=== PATIENT | male | born 1955 | race Caucasian/White ===

== ENCOUNTER 2016-07-28 15:31 | Inpatient (IN) | payer MEDICARE, OTHER ==
[~2016-07-28] VITALS: Ht 165.1 cm; Wt 68.7 kg
[2016-07-28] MEDS ORDERED: THIAMINE 100 MG in SOD CHLORIDE 0.9% 100 ML IVPB ONE (16:19)
[2016-07-28] MEDS ORDERED: SOD CHLORIDE 0.9% 500 ML IV STA (16:19)
[2016-07-28] MEDS ORDERED: DEXTROSE 50% 50 ML SYRINGE IV STA (16:47)
[2016-07-28] MEDS ORDERED: DEXTROSE 50% 50 ML SYRINGE ONE (16:48)
[2016-07-28 16:53] LABS: ADD SCAN DIFF NO
[2016-07-28 16:57] LABS: BASOPHIL # 0.1 10^3/ul (0.0-0.1); BASOPHILS % 1.1 % (0.0-2.0); EOSINOPHILS # 0.2 10^3/ul (0.0-0.5); EOSINOPHILS % 2.7 % (0.0-7.0); HEMATOCRIT 31.7 % (42.0-52.0); HEMOGLOBIN 10.2 g/dl (14.0-18.0); LYMPHOCYTES # 1.3 10^3/ul (0.8-2.9); LYMPHOCYTES % 16.4 % (15.0-51.0); MEAN CORPUSCULAR HEMOGLOBIN 30.6 pg (29.0-33.0); MEAN CORPUSCULAR HGB CONC 32.2 g/dl (32.0-37.0); MEAN CORPUSCULAR VOLUME 95.2 fl (82.0-101.0); MEAN PLATELET VOLUME 9.2 fl (7.4-10.4); MONOCYTE # 0.7 10^3/ul (0.3-0.9); MONOCYTES % 8.6 % (0.0-11.0); NEUTROPHIL # 5.6 10^3/ul (1.6-7.5); NEUTROPHILS % 70.7 % (39.0-77.0); PLATELET COUNT 327 10^3/UL (140-415); RED BLOOD COUNT 3.33 10^6/ul (4.70-6.10); RED CELL DISTRIBUTION WIDTH 17.8 % (11.5-14.5); WHITE BLOOD COUNT 7.9 10^3/ul (4.8-10.8)
[2016-07-28 17:13] LABS: INR 1.28; PARTIAL THROMBOPLASTIN TIME 32.3 Sec (25.0-35.0); PROTIME 16.1 Sec (12.2-14.2); PT RATIO 1.3
--- NOTE | 2016-07-28 17:19 | RADRPT ---
PROCEDURE: CT brain without contrast CLINICAL INDICATION: Altered mental status TECHNIQUE: CT of the brain without contrast performed on a multidetector CT scanner, with multiplan ar reformats. One or more of the following dose reduction techniques were used: Automated exposure control, adjustment in mA and / or kV according to patient size, use of iterative reconstructive león hnique. CTDIvol = 45 mGy; DLP = 720 mGy-cm. COMPARISON: None available FINDINGS: No acute intracranial hemorrhage is identified. No extra-axial fluid collection is seen. There is no mass effect. No midline shift is identified. Ventricles and sulci are mild to moderately enlarged compatible with volume loss. There are mild areas of hypodensity in the periventricular - deep white matter which are nonspecific but suggestive of chronic small vessel ischemic changes. Durand-white differentiation is preserved. Atherosclerotic calcifications of the proximal intracranial arteries are noted. Osseous structures are unremarkable. Mastoid air cells and imaged paranasal sinuses grossly clear. IMPRESSION: 1. No evidence of acute intracranial pathology. 2. Mild to moderate volume loss, with mild chronic small vessel ischemic changes. RPTAT: VV .Dandy Hua MD, MD Date Time Electronically viewed and signed by .Dandy Hua MD, MD on 07/28/2016 17:18 .O/
[2016-07-28 17:24] LABS: ALANINE AMINOTRANSFERASE 39 IU/L (13-69); ALBUMIN 3.6 g/dl (3.3-4.9); ALKALINE PHOSPHATASE 175 IU/L (42-121); ANION GAP 30 (8-16); ASPARTATE AMINO TRANSFERASE 35 IU/L (15-46); BLOOD UREA NITROGEN 90 mg/dl (7-20); CALCIUM 8.9 mg/dl (8.4-10.2); CARBON DIOXIDE 16 mmol/L (21-31); CHLORIDE 100 mmol/L (97-110); SODIUM 138 mmol/L (135-144); TOTAL PROTEIN 7.2 g/dl (6.1-8.1)
[2016-07-28 17:36] LABS: ACETAMINOPHEN < 10.0 ug/ml (10.0-30.0); CREATININE 16.97 mg/dl (0.61-1.24); ETHANOL < 10.0 mg/dl; GLUCOSE 26 mg/dl (70-220); POTASSIUM 7.6 mmol/L (3.5-5.1); SALICYLATE < 1.0 mg/dl (5.0-30.0)
[2016-07-28] MEDS ORDERED: NA POLYST SULFON 15 GM/60 ML BTL PO STA (17:39)
[2016-07-28] MEDS ORDERED: INSULIN REGULAR, HUMAN 100 UNIT/1 ML 3ML VIAL IV STA (17:39)
[2016-07-28] MEDS ORDERED: DEXTROSE 50% 50 ML SYRINGE IV PRN ×2 (18:00→22:30)
[2016-07-28 18:04] LABS: T3 UPTAKE 44.9 % (23.5-40.5)
--- NOTE | 2016-07-28 18:05 | RADRPT ---
PROCEDURE: XR Chest. CLINICAL INDICATION: Chest pain TECHNIQUE: Chest AP portable. COMPARISON: No comparison available. FINDINGS: The mediastinal structures are unremarkable. There is calcification of the thoracic aorta (consiste nt with atherosclerosis). There is mild cardiomegaly. The pulmonary vascularity is normal. The russ ng laura are unremarkable. No consolidation is identified. The pleural spaces are unremarkable. The osseous structures are unremarkable. IMPRESSION: Calcification of the thoracic aorta (consistent with atherosclerosis) Mild cardiomegaly No active intrathoracic disease RPTAT: HGDB .Edy Parsons MD, MD Date Time Electronically viewed and signed by .Edy Parsons MD, on 07/28/2016 18:04 .B/
--- NOTE | 2016-07-28 18:52 | ERA ---
ER Documentation Chief Complaint Date/Time DATE: 07/28/16 TIME: 18:43 Chief Complaint found on the street called by police for aloc HPI 60-year-old male with unknown past medical history brought in by ambulance for altered mental status. He was reportedly outside of a donut shop laying down for several hours. Police saw the patient and evaluated him. He seemed very confused and was not answering questions or getting up, so they called ambulance. When EMS evaluated the patient, he refused to stand up and get into the gurney. He was carried into the gurney and brought here. Vitals were stable in route. Patient was not answering many questions. Currently the patient is mumbling, seems altered, and not able to answer my questions ROS Unable to obtain given altered mental status Allergies Allergies: Coded Allergies: No Known Allergy (Unverified , 07/28/16) PMhx/Soc Unable to obtain Medical and Surgical Hx: Unable to obtain Smoking Status: Unknown if ever smoked FmHx Family History: other (Unable to obtain) Physical Exam Vitals Vital Signs Date Time Temp Pulse Resp B/P Pulse Ox O2 Delivery O2 Flow Rate FiO2 07/28/16 15:54 98.2 86 18 132/60 97 Physical Exam Const: Chronically ill-appearing, somnolent but arousable, mumbled speech, Head: Atraumatic Eyes: Normal Conjunctiva ENT: Normal External Ears, Nose and Mouth. Neck: Full range of motion..~ No meningismus. Resp: Clear to auscultation bilaterally Cardio: Regular rate and rhythm, no murmurs Abd: Soft, non tender, distended. Normal bowel sounds Skin: No petechiae or rashes Back: No midline or flank tenderness Ext: No cyanosis. Left upper extremity AV fistula noted with palpable thrill. Bilateral lower extremities with mild edema, with associated erythema, left greater than right. Bilateral lower extremity tenderness to palpation Neur: Somnolent but arousable, incomprehensible speech, not cooperative with neurologic exam and strength testing. Patient just stares at me Psych: Normal Mood and flat affect Result Diagram: 07/28/16 1643 07/28/16 1643 Results 24 hrs Laboratory Tests Test 07/28/16 16:43 07/28/16 16:46 07/28/16 20:06 White Blood Count 7.910^3/ul Red Blood Count 3.3310^6/ul Hemoglobin 10.2g/dl Hematocrit 31.7% Mean Corpuscular Volume 95.2fl Mean Corpuscular Hemoglobin 30.6pg Mean Corpuscular Hemoglobin Concent 32.2g/dl Red Cell Distribution Width 17.8% Platelet Count 53348^3/UL Mean Platelet Volume 9.2fl Neutrophils % 70.7% Lymphocytes % 16.4% Monocytes % 8.6% Eosinophils % 2.7% Basophils % 1.1% Nucleated Red Blood Cells % 0.0/100WBC Neutrophils # 5.610^3/ul Lymphocytes # 1.310^3/ul Monocytes # 0.710^3/ul Eosinophils # 0.210^3/ul Basophils # 0.110^3/ul Nucleated Red Blood Cells # 0.010^3/ul Prothrombin Time 16.1Sec Prothrombin Time Ratio 1.3 INR International Normalized Ratio 1.28 Activated Partial Thromboplast Time 32.3Sec Sodium Level 138mmol/L Potassium Level 7.6mmol/L Chloride Level 100mmol/L Carbon Dioxide Level 16mmol/L Anion Gap 30 Blood Urea Nitrogen 90mg/dl Creatinine 16.97mg/dl Glucose Level 26mg/dl Calcium Level 8.9mg/dl Total Bilirubin 0.0mg/dl Direct Bilirubin 0.00mg/dl Indirect Bilirubin 0.0mg/dl Aspartate Amino Transf (AST/SGOT) 35IU/L Alanine Aminotransferase (ALT/SGPT) 39IU/L Alkaline Phosphatase 175IU/L Ammonia < 9umol/l Troponin I 0.030ng/ml Total Protein 7.2g/dl Albumin 3.6g/dl Globulin 3.60g/dl Albumin/Globulin Ratio 1.00 Free Thyroxine Index 2.07ug/ml Thyroxine (T4) 4.6ug/dl Triiodothyronine (T3) Uptake 44.9% Salicylates Level < 1.0mg/dl Acetaminophen Level < 10.0ug/ml Ethyl Alcohol Level < 10.0mg/dl Bedside Glucose 26mg/dL 64mg/dL Current Medications Medications (Trade) Dose Ordered Sig/Raquel Route PRN Reason Start Time Stop Time Status Last Admin Dose Admin Sodium Chloride 500 ml @ 500 mls/hr Q1H STAT IV 07/28/16 16:19 07/28/16 17:18 DC 07/28/16 17:14 Thiamine HCl/ Sodium Chloride (Vitamin B1/NS) 101 ml @ 50 mls/hr Q2H2M ONCE IVPB 07/28/16 16:19 07/28/16 18:20 DC Dextrose (D50w Syringe) 100 ml ONCE STAT IV 07/28/16 16:47 07/28/16 16:49 DC 07/28/16 17:14 Dextrose (D50w Syringe) 50 ml STK-MED ONCE .ROUTE 07/28/16 16:48 07/28/16 16:49 DC Sodium Polystyrene Sulfonate (Kayexalate) 30 gm ONCE STAT PO 07/28/16 17:39 07/28/16 17:42 DC 07/28/16 20:16 Insulin Human Regular (Humulin R) 10 unit ONCE STAT IV 07/28/16 17:39 07/28/16 17:42 DC 07/28/16 20:17 Dextrose (D50w Syringe) ONCE PRN IV POC BLOOD GLUCOSE <250 MG/DL 07/28/16 18:00 07/28/16 20:18 Ondansetron HCl (Zofran Inj) 4 mg ER BRIDGE PRN IV NAUSEA AND/OR VOMITING 07/28/16 19:00 07/29/16 18:59 Acetaminophen 650 mg 650 mg ER BRIDGE PRN PO MILD PAIN/FEVER 07/28/16 19:00 07/29/16 18:59 Dextrose (D10w) 1,000 ml @ 125 mls/hr Q8H ONCE IV 07/28/16 20:25 07/29/16 04:24 Procedures/MDM EKG: Rate/Rhythm: Normal Sinus Rhythm QRS, ST, T-waves: Rightward axis, no changes consistent w/ acute ischemia Impression: No evidence of ischemia or arrhythmia Chest x-ray: No acute abnormalities CT head: IMPRESSION: 1. No evidence of acute intracranial pathology. 2. Mild to moderate volume loss, with mild chronic small vessel ischemic changes. .Dandy Hua MD, MD Date Time Electronically viewed and signed by .Dandy Hua MD, MD on 07/28/2016 17:18 Labs: Anemia, hyperkalemia, acidosis, elevated creatinine and BUN, hypoglycemia MDM: Patient is presenting with altered mental status. Vitals are stable. He was noted to have hypoglycemia for which dextrose was administered IV with improvement of his mental status, however the patient continued to act strange and makes strange comments, in addition to not answering questions appropriately. EKG did not show any acute abnormalities. Labs were notable for hyper kalemia. Given there was no EKG changes, he was treated with dextrose , insulin, and Kayexalate. He was placed on a D10 drip for recurrent hypoglycemia prior to insulin administration. His labs show evidence of end- stage renal disease and patient will require dialysis. I spoke with the inpatient team, who will consult nephrology for dialysis and will admit the patient to the telemetry unit. Critical Care Time: 45 minutes Treatments/Evaluations: Close monitoring and treatment of unstable vital signs, cardiorespiratory, and neurologic status, while maintaining tight balance of fluid, respiratory, and cardiac interventions. This time includes discussing the case with the patient and the patients family. This time does not include all procedures stated elsewhere in this record. This time also includes reviewing old records, labs and radiological studies. This time includes examining and re-examining the patient. Additionally, this time also includes arranging care with admitting and consulting physicians. Accepting Care Team: Current data and ongoing care discussed. Time: Time of admission Primary Provider: Jordan Consulting: nephrology (hospitalist to contact) Outstanding Data: none Departure Diagnosis: Primary Impression: Altered level of consciousness Additional Impressions: Hypoglycemia Hyperkalemia Chronic kidney disease on chronic dialysis Condition: Critical SERGIO PATEL MD Jul 28, 2016 18:52
[2016-07-28] MEDS ORDERED: ACETAMINOPHEN 325 MG TAB PO PRN ×2 (19:00→22:00)
[2016-07-28] MEDS ORDERED: ONDANSETRON 4 MG INJ IV PRN ×2 (19:00→22:00)
[2016-07-28] MEDS ORDERED: DEXTROSE 10% 1,000 ML IV ONE (20:25)
[2016-07-28 20:43] LABS: MAGNESIUM 2.5 mg/dl (1.7-2.5)
[2016-07-28 20:45] LABS: AADO2 Arterial 39.3 mmHg (7.0-24.0); Allen Test ACCEPTAB; Arterial Base Excess -10.4 mmol/L (-3.0-3); Arterial COHb 0.1 % (0.0-3.0); Arterial Fraction of Oxyhgb 91.1 % (93.0-99.0); Arterial HCO3 14.6 mmol/L (22.0-26.0); Arterial MetHb 0.5 % (0.0-1.5); Arterial Total Hemglobin 11.4 g/dl (12.0-18.0); MODE ROOM AIR
[2016-07-28 20:56] LABS: PHOSPHORUS 15.1 mg/dl (2.5-4.9)
[2016-07-28] MEDS ORDERED: NA BICARBONATE 8.4% 50 ML SYG IV STA (21:05)
[2016-07-28 21:28] VITALS: PULSE 96
[2016-07-28] MEDS ORDERED: CALCIUM GLUCONATE 10% 1 GM in SOD CHLORIDE 0.9% 100 ML IVPB ONE (21:30)
[2016-07-28 21:33] VITALS: Ht 165.1 cm; Wt 68.7 kg
[2016-07-28] MEDS ORDERED: [UNRECOGNIZED DRUG - REMARK] (21:35)
[2016-07-28] MEDS ORDERED: DOCUSATE SODIUM 100 MG CAP PO PRN (22:00)
[2016-07-28] MEDS ORDERED: BISACODYL (EC) 5 MG TAB PO PRN (22:00)
[2016-07-28] MEDS ORDERED: NACL 0.9% 3 ML SYG IV SCH (22:00)
[2016-07-28] MEDS: DEXTROSE 50% 50 ML SYRINGE IV PRN ×2 (22:04→22:59)
[2016-07-28 22:20] VITALS: BP_SYST 156; BP_DIAS 65; BP_DIAS 84; PULSE 76
[2016-07-28] MEDS ORDERED: GLUCOSE GEL 15 GRAM TUBE PO PRN ×2 (22:30)
[2016-07-28] MEDS ORDERED: GLUCAGON 1 MG INJ IM PRN (22:30)
[2016-07-28] MEDS ORDERED: INSULIN ASPART [NOVOLOG] 3 ML PEN SC SCH (22:30)
[2016-07-28] MEDS ORDERED: GLUCOSE GEL 15 GRAM TUBE BUCCAL PRN (22:30)
[2016-07-28 22:40] LABS: CALCIUM 8.8 mg/dl (8.4-10.2)
[2016-07-28 22:50] VITALS: BP 147/81; PULSE 74
[2016-07-28 22:50] LABS: POTASSIUM 6.8 mmol/L (3.5-5.1)
[2016-07-28 22:51] LABS: CREATININE 16.81 mg/dl (0.61-1.24)
[2016-07-28 23:20] VITALS: BP 136/79; PULSE 72
[2016-07-28 23:50] VITALS: BP 129/77; PULSE 70
[2016-07-29] VITALS (31 sets, daily range): BP systolic 120–170; BP diastolic 53–126; PULSE 65–101; RESP 13–28
[2016-07-29] MEDS: DEXTROSE 50% 50 ML SYRINGE IV PRN (00:10)
[2016-07-29] MEDS ORDERED: ACCU-CHEK XX SCH ×2 (01:00→02:00)
[2016-07-29] MEDS: DEXTROSE 10% 1,000 ML IV SCH ×3 (01:07→12:58)
--- NOTE | 2016-07-29 04:13 | HP ---
Date/Time of Note Date/Time of Note DATE: 07/29/16 TIME: 04:00 Assessment/Plan VTE Prophylaxis VTE Prophylaxis Intervention: SCD's Lines/Catheters Urinary Cath still in place: No Assessment/Plan Chief Complaint/Hosp Course This is a 60-year-old male being admitted to the telemetry floor for: #1 altered mental status: Secondary to metabolic causes such as hypoglycemia possible uremic encephalopathy. Will obtain a urine drug screen the patient can possibly be an anuric. Blood sugar checks every 2 hours. Goal is to maintain blood sugars above 80. Patient's potassium on admission was 7.5 however there were no EKG changes. Patient did have an elevated creatinine of 16 though baseline is not known at this time. Patient's phosphorus 15. BUN 90 secondary to patient's altered mental status and abnormal kidney function and electrolyte laboratory work urgent consult was placed to nephrology for dialysis. Patient will undergo hemodialysis urgently. #2 end-stage renal disease: Patient will undergo urgent hemodialysis secondary to possible uremic encephalopathy at this time. We will continue to monitor electrolytes. Nephrology consult placed, appreciate their involvement #3 hypoglycemia: Likely secondary to underlying poor nutrition as well as end- stage renal disease. The current time will monitor blood sugars every 2 hours. Will provide amps of D50 if needed. May also need IV fluids with dextrose. Insulin sliding scale. If patient's sugars continue to be hypercalcemic patient may need a higher level of care in the ICU.. #4 Diabetes mellitus: We will obtain a hemoglobin A1c, insulin sliding scale, further recommendations as per #3. #5 hypertension: We will continue to monitor this and start any medications if necessary. #6 DVT and GI prophylaxis: SCDs, Protonix Further treatment strategy will be implemented as per the clinical course. Will attempt to confirm with patient if he is on any medications as an outpatient. There are no current records of any medications that he is taking. Problems: HPI/ROS Admit Date/Time Admit Date/Time Jul 28, 2016 at 18:53 Hx of Present Illness Chief complaint: Altered mental status 60-year-old male with unknown past medical history brought in by ambulance for altered mental status. He was reportedly outside of a donut shop laying down for several hours. Police saw the patient and evaluated him. He seemed very confused and was not answering questions or getting up, so they called ambulance. When EMS evaluated the patient, he refused to stand up and get into the gurney. He was carried into the gurney and brought here. Vitals were stable in route. Patient was not answering many questions. As per the ED physician patient was mumbling, seems altered, and not able to answer my questions. During my examination the patient that he was still confused he was able to respond to some questions. He did state that he underwent dialysis last week while using his left upper extremity AV fistula. Patient was unable to give an appropriate answer regarding whether he is oliguric or anuric. Allergies: NKDA Medications: patient denies ROS Subjective hx not possible: pt critical status, other (Unable to give an appropriate history secondary to his confusion and somnolent status) PMH/Family/Social Past Medical History End-stage renal disease on dialysis, diabetes mellitus, high blood pressure Past Surgical History Left upper extremity AV fistula Family History Significant Family History: no pertinent family hx Social History Unable to fully assess his recreational drug use history secondary to somnolence. Alcohol Use: other (Patient denies still unable to properly assess secondary to his somnolence) Smoking Status: Current every day smoker Drug Use: none Exam/Review of Systems Vital Signs Vitals Vital Signs Date Time Temp Pulse Resp B/P Pulse Ox O2 Delivery O2 Flow Rate FiO2 07/29/16 03:00 94 17 146/60 95 07/29/16 02:30 Nasal Cannula 07/29/16 01:35 2.0 07/29/16 01:00 98.3 Intake and Output 07/28/16 07/28/16 07/29/16 15:00 23:00 07:00 Intake Total 300 ml Output Total 1300 ml Balance -1000 ml Exam Exam General: Patient is somnolent however he is easily arousable. Patient does get agitated. HEENT: There appears to be some abrasions of the forehead and scalp poor dentition, Neck: Supple with full range of motion. No rigidity or meningismus Chest: Nontender Lungs: Clear to auscultation bilaterally no crackles rales or wheezing Heart: Normal S1-S2, Regular rhythm and rate. No appreciable murmur Abdomen: Soft , nontender, nondistended , bowel sounds are present. No guarding no rebound tenderness , No masses or organomegaly. Extremities: Normal to inspection, no edema no cyanosis, left upper extremity AV fistula with palpable thrill Neurologic: Normal mental status, speech normal, cranial nerves II through XII are intact, motor and sensory are intact, no focal weakness Skin: Dry rough scaly skin of the lower extremities Additional Comments EKG: Rate/Rhythm: Normal Sinus Rhythm QRS, ST, T-waves: Rightward axis, no changes consistent w/ acute ischemia As per ED physician documentation CLINICAL INDICATION: Altered mental status TECHNIQUE: CT of the brain without contrast performed on a multidetector CT scanner, with multiplanar reformats. One or more of the following dose reduction techniques were used: Automated exposure control, adjustment in mA and / or kV according to patient size, use of iterative reconstructive technique. CTDIvol = 45 mGy; DLP = 720 mGy-cm. COMPARISON: None available FINDINGS: No acute intracranial hemorrhage is identified. No extra-axial fluid collection is seen. There is no mass effect. No midline shift is identified. Ventricles and sulci are mild to moderately enlarged compatible with volume loss. There are mild areas of hypodensity in the periventricular - deep white matter which are nonspecific but suggestive of chronic small vessel ischemic changes. Durand-white differentiation is preserved. Atherosclerotic calcifications of the proximal intracranial arteries are noted. Osseous structures are unremarkable. Mastoid air cells and imaged paranasal sinuses grossly clear. IMPRESSION: 1. No evidence of acute intracranial pathology. 2. Mild to moderate volume loss, with mild chronic small vessel ischemic changes. RPTAT: VV .Dandy Hua MD, MD Date Time Electronically viewed and signed by .Dandy Hua MD, on 07/28/2016 17:18 PROCEDURE: XR Chest. CLINICAL INDICATION: Chest pain TECHNIQUE: Chest AP portable. COMPARISON: No comparison available. FINDINGS: The mediastinal structures are unremarkable. There is calcification of the thoracic aorta (consistent with atherosclerosis). There is mild cardiomegaly. The pulmonary vascularity is normal. The lung laura are unremarkable. No consolidation is identified. The pleural spaces are unremarkable. The osseous structures are unremarkable. IMPRESSION: Calcification of the thoracic aorta (consistent with atherosclerosis) Mild cardiomegaly No active intrathoracic disease RPTAT: HGDB .Edy Parsons MD, MD Date Time Electronically viewed and signed by .Edy Parsons MD, MD on 07/28/2016 18:04 Labs Result Diagram: 07/28/16 1643 07/28/16 0190 Medications Medications Current Medications Ondansetron HCl (Zofran Inj) 4 mg Q6H PRN IV NAUSEA AND/OR VOMITING; Start at 22:00 Acetaminophen (Tylenol Tab) 650 mg Q6H PRN PO PAIN LEVEL 1-3 OR FEVER; Start at 22:00 Docusate Sodium (Colace) 100 mg Q12H PRN PO CONSTIPATION; Start 07/28/16 at 22: 00 Bisacodyl (Dulcolax) 5 mg DAILY PRN PO CONSTIPATION; Start 07/28/16 at 22:00 Pantoprazole (Protonix Iv) 40 mg DAILY@06 IV ; Start 07/29/16 at 06:00 Miscellaneous Information 1 ea NOTE XX ; Start 07/28/16 at 22:30 Glucose (Glutose) 15 gm Q15M PRN PO DECREASED GLUCOSE; Start 07/28/16 at 22:30 Glucose (Glutose) 22.5 gm Q15M PRN PO DECREASED GLUCOSE; Start 07/28/16 at 22: 30 Dextrose (D50w Syringe) 25 ml Q15M PRN IV DECREASED GLUCOSE; Start 07/28/16 at 22:30 Dextrose (D50w Syringe) 50 ml Q15M PRN IV DECREASED GLUCOSE Last administered on 07/29/16 00:10; Admin Dose 50 ML; Start 07/28/16 at 22:30 Glucagon (Glucagen) 1 mg Q15M PRN IM DECREASED GLUCOSE; Start 07/28/16 at 22:30 Glucose 15 gm 15 gm Q15M PRN BUCCAL DECREASED GLUCOSE; Start 07/28/16 at 22:30 Dextrose (D10w) 1,000 ml @ 100 mls/hr Q10H IV Last administered on 07/29/16 01:07; Admin Dose 100 MLS/HR; Start 07/28/16 at 23:00 Insulin Aspart (Novolog Insulin Pen) NOVOLOG *MILD* ALGORI... Q2 SC ; Start at 05:00 MELY AYALA Jul 29, 2016 04:12
[2016-07-29] MEDS: INSULIN ASPART [NOVOLOG] 3 ML PEN SC SCH ×6 (05:00→15:00)
[2016-07-29] MEDS ORDERED: PANTOPRAZOLE 40 MG INJ IV SCH (06:00)
[2016-07-29 06:10] LABS: ADD SCAN DIFF NO
[2016-07-29 06:33] LABS: BASOPHIL # 0.1 10^3/ul (0.0-0.1); EOSINOPHILS # 0.4 10^3/ul (0.0-0.5); EOSINOPHILS % 5.5 % (0.0-7.0); HEMATOCRIT 28.6 % (42.0-52.0); HEMOGLOBIN 9.3 g/dl (14.0-18.0); LYMPHOCYTES # 1.1 10^3/ul (0.8-2.9); LYMPHOCYTES % 15.8 % (15.0-51.0); MEAN CORPUSCULAR HEMOGLOBIN 30.3 pg (29.0-33.0); MEAN CORPUSCULAR HGB CONC 32.5 g/dl (32.0-37.0); MEAN CORPUSCULAR VOLUME 93.2 fl (82.0-101.0); MEAN PLATELET VOLUME 9.2 fl (7.4-10.4); MONOCYTE # 0.7 10^3/ul (0.3-0.9); MONOCYTES % 9.6 % (0.0-11.0); NEUTROPHIL # 4.8 10^3/ul (1.6-7.5); NEUTROPHILS % 67.8 % (39.0-77.0); PLATELET COUNT 327 10^3/UL (140-415); RED BLOOD COUNT 3.07 10^6/ul (4.70-6.10); RED CELL DISTRIBUTION WIDTH 17.3 % (11.5-14.5); WHITE BLOOD COUNT 7.1 10^3/ul (4.8-10.8)
[2016-07-29 07:30] LABS: ALBUMIN/GLOBULIN RATIO 0.93; BILIRUBIN,INDIRECT 0.1 mg/dl (0-1.1); BILIRUBIN,TOTAL 0.1 mg/dl (0.2-1.3); CALCIUM 8.2 mg/dl (8.4-10.2); CHOL/HDL RATIO 4.2 RATIO; CREATININE 13.25 mg/dl (0.61-1.24); MAGNESIUM 2.1 mg/dl (1.7-2.5); POTASSIUM 5.5 mmol/L (3.5-5.1); TOTAL PROTEIN 6.2 g/dl (6.1-8.1)
[2016-07-29] MEDS ORDERED: ACETAMINOPHEN 325 MG TAB PO PRN (10:30)
--- NOTE | 2016-07-29 13:28 | CONS ---
DATE OF ADMISSION: 07/28/2016 DATE OF CONSULTATION: 07/29/2016 REASON FOR CONSULTATION: End-stage renal disease, hyperkalemia. REQUESTING PHYSICIAN: Dr. Ortega HISTORY OF PRESENT ILLNESS: This is a 60-year-old male with a past medical history of end-stage korin al disease on dialysis for 2 years, access is a left AV fistula. The patient does not know who his n ephrologist name or his location of dialysis. He was admitted to [facility] after being noted to be altered and found to be very confused. When patient was evaluated by ____ gaby dailey he was combative and as a result he was transferred to [facility]. Upon arriv al, the patient was noted to be hypoglycemic with glucose levels of 29 and hyperkalemia with potassi um of 7.6. The patient was given temporizing measures in the emergency room and was initiated on ur gent hemodialysis. The patient only dialyzed for 2 hours as needed but he was refusing prolonged di alysis. The patient was then transferred to intensive care unit. Upon my evaluation of the patient at this time, he is currently combative. He was currently combativ e. He denies any ____ chest pain, fevers, chills, nausea, vomiting. PAST MEDICAL HISTORY: As stated above, history of end-stage renal disease, history of diabetes, hyp ertension, anemia PAST SURGICAL HISTORY: Status post AV fistula. FAMILY HISTORY: Noncontributory. SOCIAL HISTORY: Unknown but patient denies ____ smoking, alcohol use. MEDICATIONS: The patient's medications have been reviewed. ALLERGIES: NO KNOWN DRUG ALLERGIES. REVIEW OF SYSTEMS: A 14-point review of systems was conducted. Pertinent positives as stated in the HPI, otherwise negative. PHYSICAL EXAMINATION: VITAL SIGNS: Blood pressure is 148/59, respirations 15, pulse 93, temperature 98.0. HEENT: Head is normocephalic. Pupils are reactive to light. NECK: Supple. HEART: Trachea rate. LUNGS: Show diminished breath sounds at the base. ABDOMEN: Soft, nontender to palpation without rebound or guarding. EXTREMITIES: Negative for clubbing, cyanosis, no edema. DERMATOLOGIC: No rashes. MUSCULOSKELETAL: The patient has positive AV fistula left upper extremity. NEUROLOGIC: No obvious focal deficits. The patient's medications have been reviewed. LABORATORY DATA: Shows sodium 140, potassium 5.5, chloride 101, BUN ____ , creatinine 13.25. Whit e count ____ , hemoglobin 9.3, hematocrit 28.6, platelet count 227. ASSESSMENT AND PLAN: This is a 60-year-old male who presents with: 1. End-stage renal disease. The patient is on hemodialysis, days unknown. Access is a right upper extremity fistula. The patient had urgent hemodialysis yesterday. Plan for dialysis again for 3 miguelina rs ____ calcium 2.5. Will ultrafiltrate as tolerated. 2. Hyperkalemia secondary to end-stage renal disease. The patient will continue dialysis on a low potassium diet. Continue renal diet. 3. Anemia. Will monitor H and H levels. Continue Epogen as needed. 4. Mineral bone disorder. Will monitor calcium and phosphorus levels. 5. Metabolic acidosis, ____ renal disease. The patient will be dialyzed on a ____ bath. 6. Acute encephalopathy, etiology is secondary to hyperglycemia. Possible uremia. Will continue to clinically monitor. Continue hemodialysis. 7. Diabetes. Continue Accu-Cheks, insulin sliding scale. 8. Hypertension. Continue to monitor. Continue ultrafiltration dialysis. Thank you, Dr. Ortega, for this interesting consult. It will be a pleasure to follow patient with bertin rodriguez throughout the hospital course. Dictated By: ITALO BURCH/ROHIT Conf#: [id number] DID#: [id number]
--- NOTE | 2016-07-29 14:08 | PN ---
Date/Time of Note Date/Time of Note DATE: 07/29/16 TIME: 14:04 Assessment/Plan VTE Prophylaxis VTE Prophylaxis Intervention: SCD's Lines/Catheters IV Catheter Type (from Nrs): Peripheral IV Urinary Cath still in place: No Assessment/Plan Assessment/Plan 60 yo M with ESRD on HD, HTN, DM, HL admitted after being found confused following a fall yesterday. Noted to be significantly hypoglycemic on arrival. Re pt's chronic medical problems, pt stated he gets his home meds from the [facility] at [facility]. I called that pharmacy, last fill there was back in December and was not for BP or DM meds. #ESRD on HD: renal following for HD #DM2: cont SSI #HTN: start CCB #HL: start statin #groin rash: clinically consistent with tinea -->topical antifungal #foot lesions: wound care cs TRANSFER TO FLOOR MED/SURG Subjective 24 Hr Interval Summary Free Text/Dictation Patient highly demanding. Asking that is coffee be reheated but also upset that is main dish is too hot. Regarding the events that led to patient's admission, pt states he did not go to HD on Wednesday but does not recall why he didn't go. States that though he uses a wheelchair to walk long distances, he was ambulating unassisted yesterday and tripped over a crack in the sidewalk on [facility]. A bystander called EMS and that's how patient ended up in the ER. Pt denies EtOH consumption. States he has not been eating or drinking less than usual in recent days. Has many other requests including an electric wheelchair. Exam/Review of Systems Vital Signs Vitals Vital Signs Date Time Temp Pulse Resp B/P Pulse Ox O2 Delivery O2 Flow Rate FiO2 07/29/16 12:15 91 15 100 07/29/16 12:00 97.5 144/55 Nasal Cannula 2.0 Intake and Output 07/28/16 07/28/16 07/29/16 15:00 23:00 07:00 Intake Total 300 ml Output Total 1300 ml Balance -1000 ml Exam demanding, several scalp abrasions no mrg lungs clear abd soft feet with several wounds bl-->surgically absent L 5th toe, 4th toe swollen though no ttp. also small escars at medial aspects of both big toes. feet are warm and well perfused +groin area with significant erythema multiple abrasions to back +ecchymoses L hip Results Result Diagram: 07/29/16 0532 07/29/16 0532 Results 24 hrs Laboratory Tests Test 07/28/16 16:43 07/28/16 16:46 07/28/16 20:04 07/28/16 20:06 White Blood Count 7.9 Red Blood Count 3.33 L Hemoglobin 10.2 L Hematocrit 31.7 L Mean Corpuscular Volume 95.2 Mean Corpuscular Hemoglobin 30.6 Mean Corpuscular Hemoglobin Concent 32.2 Red Cell Distribution Width 17.8 H Platelet Count 327 Mean Platelet Volume 9.2 Neutrophils % 70.7 Lymphocytes % 16.4 Monocytes % 8.6 Eosinophils % 2.7 Basophils % 1.1 Nucleated Red Blood Cells % 0.0 Neutrophils # 5.6 Lymphocytes # 1.3 Monocytes # 0.7 Eosinophils # 0.2 Basophils # 0.1 Nucleated Red Blood Cells # 0.0 Prothrombin Time 16.1 H Prothrombin Time Ratio 1.3 INR International Normalized Ratio 1.28 Activated Partial Thromboplast Time 32.3 Sodium Level 138 Potassium Level 7.6 *H Chloride Level 100 Carbon Dioxide Level 16 L Anion Gap 30 H Blood Urea Nitrogen 90 H Creatinine 16.97 H Glucose Level 26 *L Calcium Level 8.9 Phosphorus Level 15.1 H Magnesium Level 2.5 Total Bilirubin 0.0 L Direct Bilirubin 0.00 Indirect Bilirubin 0.0 Aspartate Amino Transf (AST/SGOT) 35 Alanine Aminotransferase (ALT/SGPT) 39 Alkaline Phosphatase 175 H Ammonia < 9 L Troponin I 0.030 Total Protein 7.2 Albumin 3.6 Globulin 3.60 H Albumin/Globulin Ratio 1.00 Free Thyroxine Index 2.07 Thyroxine (T4) 4.6 L Triiodothyronine (T3) Uptake 44.9 H Salicylates Level < 1.0 L Acetaminophen Level < 10.0 L Ethyl Alcohol Level < 10.0 Bedside Glucose 26 *L 64 L Blood Gas Specimen Source Blood arterial Arterial Blood Date Drawn 07/28/2016 8:32:24 PM Arterial Blood pH (Temp corrected) 7.309 L Arterial Blood pCO2 (Temp correct) 29.8 L Arterial Blood pO2 (Temp corrected) 74.7 L Arterial Blood HCO3 14.6 L Arterial Blood Base Excess -10.4 L Arterial Blood Oxygen Saturation 91.6 L Bradley Test ACCEPTAB Arterial Blood Gas Puncture Site Right Radial Arterial Blood Carboxyhemoglobin 0.1 Arterial Blood Methemoglobin 0.5 Blood Gas A-a O2 Differential 39.3 H Oxyhemoglobin Percent 91.1 L Total Hemoglobin 11.4 L Blood Gas Temperature 37.0 Blood Gas Modality ROOM AIR FiO2 21.0 Blood Gas Notified Whom AA Blood Gas Notified Time 07/28/2016 8:45:20 PM Test 07/28/16 20:52 07/28/16 20:58 07/28/16 21:50 07/28/16 22:01 Bedside Glucose 137 26 *L Lactic Acid Level 1.4 Sodium Level 138 Potassium Level 6.8 *H Chloride Level 103 Carbon Dioxide Level 16 L Anion Gap 26 H Blood Urea Nitrogen 89 H Creatinine 16.81 H Glucose Level 29 *L Calcium Level 8.8 Test 07/28/16 22:21 07/28/16 22:45 07/28/16 23:22 07/28/16 23:44 Bedside Glucose 93 43 *L 78 72 Test 07/29/16 00:03 07/29/16 00:31 07/29/16 01:02 07/29/16 01:21 Bedside Glucose 43 *L 106 66 L 73 Test 07/29/16 01:51 07/29/16 04:10 07/29/16 05:30 07/29/16 05:32 Bedside Glucose 78 89 Hemoglobin A1c 4.9 White Blood Count 7.1 Red Blood Count 3.07 L Hemoglobin 9.3 L Hematocrit 28.6 L Mean Corpuscular Volume 93.2 Mean Corpuscular Hemoglobin 30.3 Mean Corpuscular Hemoglobin Concent 32.5 Red Cell Distribution Width 17.3 H Platelet Count 327 Mean Platelet Volume 9.2 Neutrophils % 67.8 Lymphocytes % 15.8 Monocytes % 9.6 Eosinophils % 5.5 Basophils % 1.0 Nucleated Red Blood Cells % 0.0 Neutrophils # 4.8 Lymphocytes # 1.1 Monocytes # 0.7 Eosinophils # 0.4 Basophils # 0.1 Nucleated Red Blood Cells # 0.0 Sodium Level 140 Potassium Level 5.5 H Chloride Level 101 Carbon Dioxide Level 23 Anion Gap 22 H Blood Urea Nitrogen 71 H Creatinine 13.25 #H Glucose Level 124 # Calcium Level 8.2 L Magnesium Level 2.1 Total Bilirubin 0.1 L Direct Bilirubin 0.00 Indirect Bilirubin 0.1 Aspartate Amino Transf (AST/SGOT) 34 Alanine Aminotransferase (ALT/SGPT) 32 Alkaline Phosphatase 137 H Total Protein 6.2 # Albumin 3.0 L Globulin 3.20 Albumin/Globulin Ratio 0.93 Triglycerides Level 89 Cholesterol Level 132 LDL Cholesterol, Calculated 83 HDL Cholesterol 31 Cholesterol/HDL Ratio 4.2 Test 07/29/16 05:39 07/29/16 07:17 07/29/16 09:09 07/29/16 11:10 Bedside Glucose 132 120 117 118 Test 07/29/16 13:03 Bedside Glucose 118 Medications Medications Current Medications Ondansetron HCl (Zofran Inj) 4 mg Q6H PRN IV NAUSEA AND/OR VOMITING; Start at 22:00 Docusate Sodium (Colace) 100 mg Q12H PRN PO CONSTIPATION; Start 07/28/16 at 22: 00 Bisacodyl (Dulcolax) 5 mg DAILY PRN PO CONSTIPATION; Start 07/28/16 at 22:00 Miscellaneous Information 1 ea NOTE XX ; Start 07/28/16 at 22:30 Glucose (Glutose) 15 gm Q15M PRN PO DECREASED GLUCOSE; Start 07/28/16 at 22:30 Glucose (Glutose) 22.5 gm Q15M PRN PO DECREASED GLUCOSE; Start 07/28/16 at 22: 30 Dextrose (D50w Syringe) 25 ml Q15M PRN IV DECREASED GLUCOSE; Start 07/28/16 at 22:30 Dextrose (D50w Syringe) 50 ml Q15M PRN IV DECREASED GLUCOSE Last administered on 07/29/16 00:10; Admin Dose 50 ML; Start 07/28/16 at 22:30 Glucagon (Glucagen) 1 mg Q15M PRN IM DECREASED GLUCOSE; Start 07/28/16 at 22:30 Glucose 15 gm 15 gm Q15M PRN BUCCAL DECREASED GLUCOSE; Start 07/28/16 at 22:30 Dextrose (D10w) 1,000 ml @ 100 mls/hr Q10H IV Last administered on 07/29/16 12:58; Admin Dose 100 MLS/HR; Start 07/28/16 at 23:00 Insulin Aspart (Novolog Insulin Pen) NOVOLOG *MILD* ALGORI... Q2 SC ; Start at 05:00 Acetaminophen (Tylenol Tab) 325 mg Q4H PRN PO PAIN AND OR ELEVATED TEMP; Start 07/29/16 at 10:30 MURPHY WHEAT MD Jul 29, 2016 14:07
[2016-07-29] MEDS ORDERED: traMADol 50 MG TAB GTB SCH (14:30)
[2016-07-29] MEDS ORDERED: AMLODIPINE 10 MG TAB PO ONE (15:00)
--- NOTE | 2016-07-29 16:16 | DS ---
Date/Time of Note Date/Time of Note DATE: 07/29/16 TIME: 16:15 Discharge Summary Admission/Discharge Info Admit Date/Time Jul 28, 2016 at 18:53 Discharge Date/Time Final Diagnosis hypoglycemia, toxic/metabolic encephalopathy, hypertension (POA), diabetes (POA ), end stage renal disease (present on admission), Patient Condition: Serious Consults nephrology Hx of Present Illness 60-year-old male with unknown past medical history brought in by ambulance for altered mental status. He was reportedly outside of a donut shop laying down for several hours. Police saw the patient and evaluated him. He seemed very confused and was not answering questions or getting up, so they called ambulance. When EMS evaluated the patient, he refused to stand up and get into the gurney. He was carried into the gurney and brought here. Vitals were stable in route. Patient was not answering many questions. As per the ED physician patient was mumbling, seems altered, and not able to answer my questions. During my examination the patient that he was still confused he was able to respond to some questions. He did state that he underwent dialysis last week while using his left upper extremity AV fistula. Patient was unable to give an appropriate answer regarding whether he is oliguric or anuric. Hospital Course Pt underwent HD shortly after admission. BGs improved with D10 infusion, pt's somnolence resolved and pt was awake and able to tolerate PO. Etiology of pt's episode of decreased LOC unknown. After ~20 hours in the hospital pt stated that he needed to leave to go to the social security office to pay his bills that he was a "free man" and he needed to leave the hospital. I came and spoke with the patient. Pt states that he lives with his sister but he is the one who pays the rent. Discussed with him that we do not know what precipitated/caused the events leading to his admission and that leaving prior to completion of work up could result in permanent disability or . Pt voiced understanding and still insisted on leaving. Home Meds Discontinued Reported Medications [patient denies] No Conflict Check 07/28/16 Follow-up Plan PCP within 7 days Primary Care Provider Time spent on discharge: > 30 minutes Pending Labs Laboratory Tests Test 07/28/16 16:43 07/28/16 16:46 07/28/16 20:04 07/28/16 20:06 White Blood Count 7.910^3/ul (4.8-10.8) Red Blood Count 3.3310^6/ul (4.70-6.10) Hemoglobin 10.2g/dl (14.0-18.0) Hematocrit 31.7% (42.0-52.0) Mean Corpuscular Volume 95.2fl (82.0-101.0) Mean Corpuscular Hemoglobin 30.6pg (29.0-33.0) Mean Corpuscular Hemoglobin Concent 32.2g/dl (32.0-37.0) Red Cell Distribution Width 17.8% (11.5-14.5) Platelet Count 84593^3/UL (140-415) Mean Platelet Volume 9.2fl (7.4-10.4) Neutrophils % 70.7% (39.0-77.0) Lymphocytes % 16.4% (15.0-51.0) Monocytes % 8.6% (0.0-11.0) Eosinophils % 2.7% (0.0-7.0) Basophils % 1.1% (0.0-2.0) Nucleated Red Blood Cells % 0.0/100WBC (0.0-0.0) Neutrophils # 5.610^3/ul (1.6-7.5) Lymphocytes # 1.310^3/ul (0.8-2.9) Monocytes # 0.710^3/ul (0.3-0.9) Eosinophils # 0.210^3/ul (0.0-0.5) Basophils # 0.110^3/ul (0.0-0.1) Nucleated Red Blood Cells # 0.010^3/ul (0.0-0.0) Prothrombin Time 16.1Sec (12.2-14.2) Prothrombin Time Ratio 1.3 INR International Normalized Ratio 1.28 Activated Partial Thromboplast Time 32.3Sec (25.0-35.0) Sodium Level 138mmol/L (135-144) Potassium Level 7.6mmol/L (3.5-5.1) Chloride Level 100mmol/L (97-110) Carbon Dioxide Level 16mmol/L (21-31) Anion Gap 30 (8-16) Blood Urea Nitrogen 90mg/dl (7-20) Creatinine 16.97mg/dl (0.61-1.24) Glucose Level 26mg/dl (70-220) Calcium Level 8.9mg/dl (8.4-10.2) Phosphorus Level 15.1mg/dl (2.5-4.9) Magnesium Level 2.5mg/dl (1.7-2.5) Total Bilirubin 0.0mg/dl (0.2-1.3) Direct Bilirubin 0.00mg/dl (0.00-0.20) Indirect Bilirubin 0.0mg/dl (0-1.1) Aspartate Amino Transf (AST/SGOT) 35IU/L (15-46) Alanine Aminotransferase (ALT/SGPT) 39IU/L (13-69) Alkaline Phosphatase 175IU/L (42-121) Ammonia < 9umol/l (9-30) Troponin I 0.030ng/ml (0.00-0.12) Total Protein 7.2g/dl (6.1-8.1) Albumin 3.6g/dl (3.3-4.9) Globulin 3.60g/dl (1.3-3.2) Albumin/Globulin Ratio 1.00 Free Thyroxine Index 2.07ug/ml (0.65-3.89) Thyroxine (T4) 4.6ug/dl (5.5-11.0) Triiodothyronine (T3) Uptake 44.9% (23.5-40.5) Salicylates Level < 1.0mg/dl (5.0-30.0) Acetaminophen Level < 10.0ug/ml (10.0-30.0) Ethyl Alcohol Level < 10.0mg/dl Bedside Glucose 26mg/dL (70-220) 64mg/dL (70-220) Blood Gas Specimen Source Blood arterial Arterial Blood Date Drawn 07/28/2016 8:32:24 PM Arterial Blood pH (Temp corrected) 7.309 (7.350-7.450) Arterial Blood pCO2 (Temp correct) 29.8mmhg (35-45) Arterial Blood pO2 (Temp corrected) 74.7mmHG (80-100.0) Arterial Blood HCO3 14.6mmol/L (22.0-26.0) Arterial Blood Base Excess -10.4mmol/L (-3.0-3) Arterial Blood Oxygen Saturation 91.6mmHG (95.0-98.0) Bradley Test ACCEPTAB Arterial Blood Gas Puncture Site Right Radial Arterial Blood Carboxyhemoglobin 0.1% (0.0-3.0) Arterial Blood Methemoglobin 0.5% (0.0-1.5) Blood Gas A-a O2 Differential 39.3mmHg (7.0-24.0) Oxyhemoglobin Percent 91.1% (93.0-99.0) Total Hemoglobin 11.4g/dl (12.0-18.0) Blood Gas Temperature 37.0C Blood Gas Modality ROOM AIR FiO2 21.0% Blood Gas Notified Whom AA Blood Gas Notified Time 07/28/2016 8:45:20 PM Test 07/28/16 20:52 07/28/16 20:58 07/28/16 21:50 07/28/16 22:01 Bedside Glucose 137mg/dL (70-220) 26mg/dL (70-220) Lactic Acid Level 1.4mmol/L (0.5-2.2) Sodium Level 138mmol/L (135-144) Potassium Level 6.8mmol/L (3.5-5.1) Chloride Level 103mmol/L (97-110) Carbon Dioxide Level 16mmol/L (21-31) Anion Gap 26 (8-16) Blood Urea Nitrogen 89mg/dl (7-20) Creatinine 16.81mg/dl (0.61-1.24) Glucose Level 29mg/dl (70-220) Calcium Level 8.8mg/dl (8.4-10.2) Test 07/28/16 22:21 07/28/16 22:45 07/28/16 23:22 07/28/16 23:44 Bedside Glucose 93mg/dL (70-220) 43mg/dL (70-220) 78mg/dL (70-220) 72mg/dL (70-220) Test 07/29/16 00:03 07/29/16 00:31 07/29/16 01:02 07/29/16 01:21 Bedside Glucose 43mg/dL (70-220) 106mg/dL (70-220) 66mg/dL (70-220) 73mg/dL (70-220) Test 07/29/16 01:51 07/29/16 04:10 07/29/16 05:30 07/29/16 05:32 Bedside Glucose 78mg/dL (70-220) 89mg/dL (70-220) Hemoglobin A1c 4.9% (0-5.9) White Blood Count 7.110^3/ul (4.8-10.8) Red Blood Count 3.0710^6/ul (4.70-6.10) Hemoglobin 9.3g/dl (14.0-18.0) Hematocrit 28.6% (42.0-52.0) Mean Corpuscular Volume 93.2fl (82.0-101.0) Mean Corpuscular Hemoglobin 30.3pg (29.0-33.0) Mean Corpuscular Hemoglobin Concent 32.5g/dl (32.0-37.0) Red Cell Distribution Width 17.3% (11.5-14.5) Platelet Count 96094^3/UL (140-415) Mean Platelet Volume 9.2fl (7.4-10.4) Neutrophils % 67.8% (39.0-77.0) Lymphocytes % 15.8% (15.0-51.0) Monocytes % 9.6% (0.0-11.0) Eosinophils % 5.5% (0.0-7.0) Basophils % 1.0% (0.0-2.0) Nucleated Red Blood Cells % 0.0/100WBC (0.0-0.0) Neutrophils # 4.810^3/ul (1.6-7.5) Lymphocytes # 1.110^3/ul (0.8-2.9) Monocytes # 0.710^3/ul (0.3-0.9) Eosinophils # 0.410^3/ul (0.0-0.5) Basophils # 0.110^3/ul (0.0-0.1) Nucleated Red Blood Cells # 0.010^3/ul (0.0-0.0) Sodium Level 140mmol/L (135-144) Potassium Level 5.5mmol/L (3.5-5.1) Chloride Level 101mmol/L (97-110) Carbon Dioxide Level 23mmol/L (21-31) Anion Gap 22 (8-16) Blood Urea Nitrogen 71mg/dl (7-20) Creatinine 13.25mg/dl (0.61-1.24) Glucose Level 124mg/dl (70-220) Calcium Level 8.2mg/dl (8.4-10.2) Magnesium Level 2.1mg/dl (1.7-2.5) Total Bilirubin 0.1mg/dl (0.2-1.3) Direct Bilirubin 0.00mg/dl (0.00-0.20) Indirect Bilirubin 0.1mg/dl (0-1.1) Aspartate Amino Transf (AST/SGOT) 34IU/L (15-46) Alanine Aminotransferase (ALT/SGPT) 32IU/L (13-69) Alkaline Phosphatase 137IU/L (42-121) Total Protein 6.2g/dl (6.1-8.1) Albumin 3.0g/dl (3.3-4.9) Globulin 3.20g/dl (1.3-3.2) Albumin/Globulin Ratio 0.93 Triglycerides Level 89mg/dl (0-149) Cholesterol Level 132mg/dl (100-200) LDL Cholesterol, Calculated 83mg/dl HDL Cholesterol 31mg/dl (30-78) Cholesterol/HDL Ratio 4.2RATIO Test 07/29/16 05:39 07/29/16 07:17 07/29/16 09:09 07/29/16 11:10 Bedside Glucose 132mg/dL (70-220) 120mg/dL (70-220) 117mg/dL (70-220) 118mg/dL (70-220) Test 07/29/16 13:03 07/29/16 15:31 Bedside Glucose 118mg/dL (70-220) 131mg/dL (70-220) MURPHY WHEAT MD Jul 29, 2016 16:16 (70-220) 118mg/dL (70-220) Test 07/29/16 13:03 07/29/16 15:31 Bedside Glucose 118mg/dL (70-220) 131mg/dL (70-220) MURPHY WHEAT MD Jul 29, 2016 16:16
[2016-07-29] MEDS ORDERED: CLOTRIMAZOLE 1% 30 GM CR TOP SCH (21:00)
[2016-07-29] MEDS ORDERED: ATORVASTATIN 20 MG TAB PO SCH (21:00)
[2016-07-30] MEDS ORDERED: AMLODIPINE 10 MG TAB PO SCH (09:00)
== END 2016-07-29 16:38 | disposition left against medical advice (07) | DRG 682 ==
LOC: E/R 15:31 → EDBD 15:31 → MS4 18:53 → MERGE 18:53 → ICU 21:09
PROVIDERS: ADMIT Internal Medicine; ATTEND Internal Medicine
PROC: 5A1D60Z (ICD-10-PCS; principal; 2016-07-28)
DX: I12.0 Hypertensive chronic kidney disease with stage 5 chronic kidney disease or end stage renal disease (principal); N18.6 End stage renal disease; G92 Toxic encephalopathy; E87.2 Acidosis; E87.5 Hyperkalemia; E11.649 Type 2 diabetes mellitus with hypoglycemia without coma; B35.8 Other dermatophytoses; Z99.2 Dependence on renal dialysis; F17.200 Nicotine dependence, unspecified, uncomplicated; D64.9 Anemia, unspecified; R29.704 NIHSS score 4
CPT/HCPCS: 36415; 36600; 70450; 71010; 80048; 80053; 80061; 80306; 82140; 82803; 82962; 83036; 83605; 83735; 84100; 84436; 84479; 84484; 85025; 85610; 85730; 87081; 90935; 93005; 96374; 96375; 96376; A4310; J0610; J1815; J3411; J7040

== ENCOUNTER 2016-08-03 14:03 | Emergency (ER) | payer MEDICARE, OTHER ==
[~2016-08-03] VITALS: Wt 68.3 kg
== END 2016-08-03 14:50 | disposition left against medical advice (07) ==
LOC: E/R 14:03
DX: Z53.21 Procedure and treatment not carried out due to patient leaving prior to being seen by health care provider (principal)
CPT/HCPCS: 82962

== ENCOUNTER 2016-11-04 20:10 | Observation (INO) | payer SELFPAY ==
[~2016-11-04] VITALS: Ht 160 cm; Wt 77.0 kg
[2016-11-04 20:34] VITALS: Ht 160 cm; Wt 77.0 kg
[2016-11-05] VITALS (17 sets, daily range): BP systolic 115–202; BP diastolic 59–93; PULSE 62–100; RESP 15–18; TEMP 97.2
[2016-11-05] MEDS ORDERED: HYDROmorphONE 1 MG/ML SYG IV STA (01:56)
[2016-11-05] MEDS ORDERED: ONDANSETRON 4 MG INJ IV STA ×2 (01:56→05:12)
[2016-11-05 02:09] LABS: BASOPHILS % 0.5 % (0.0-2.0); EOSINOPHILS # 0.1 10^3/ul (0.0-0.5); EOSINOPHILS % 1.4 % (0.0-7.0); HEMATOCRIT 35.1 % (42.0-52.0); HEMOGLOBIN 11.9 g/dl (14.0-18.0); LYMPHOCYTES # 1.6 10^3/ul (0.8-2.9); LYMPHOCYTES % 27.6 % (15.0-51.0); MEAN CORPUSCULAR HEMOGLOBIN 30.7 pg (29.0-33.0); MEAN CORPUSCULAR HGB CONC 33.9 g/dl (32.0-37.0); MEAN CORPUSCULAR VOLUME 90.7 fl (82.0-101.0); MEAN PLATELET VOLUME 8.7 fl (7.4-10.4); MONOCYTE # 0.6 10^3/ul (0.3-0.9); MONOCYTES % 9.5 % (0.0-11.0); NEUTROPHIL # 3.5 10^3/ul (1.6-7.5); NEUTROPHILS % 60.8 % (39.0-77.0); PLATELET COUNT 316 10^3/UL (140-415); RED BLOOD COUNT 3.87 10^6/ul (4.70-6.10); RED CELL DISTRIBUTION WIDTH 13.8 % (11.5-14.5); WHITE BLOOD COUNT 5.8 10^3/ul (4.8-10.8)
[2016-11-05 02:20] LABS: ALBUMIN 3.5 g/dl (3.3-4.9); ALBUMIN/GLOBULIN RATIO 0.83; CALCIUM 10.5 mg/dl (8.4-10.2); CREATININE 13.17 mg/dl (0.61-1.24); TOTAL PROTEIN 7.7 g/dl (6.1-8.1)
[2016-11-05 02:24] LABS: POTASSIUM 6.8 mmol/L (3.5-5.1)
--- NOTE | 2016-11-05 03:54 | RADRPT ---
PROCEDURE: CT Abdomen and pelvis without contrast. CLINICAL INDICATION: Abdominal pain. TECHNIQUE: CT scan of the abdomen and pelvis was performed on a multi-detector high-resolution CT scanner. Contiguous axial images were obtained from the lung bases to the ischial tuberosities wit hout intravenous contrast. Coronal and sagittal reformatted images were also obtained. Images were reviewed on the PACS workstation. One or more of the following dose reduction techniques were used: - Automated exposure control. - Adjustment of the mA and/or kV according to patient size. - Use of iterative reconstruction technique. Exam CTD/vol = 15.54 mGy. Total exam DLP = 1040.02 mGy-cm. COMPARISON: None. FINDINGS: Evaluation of the lung bases demonstrates mild bibasilar atelectasis and left lower lobe consolidati on. There are bilateral small pleural effusions. The heart is moderately enlarged with coronary tyrell ry calcifications. Abdomen: The liver is normal in size. There is no focal mass or dilatation of the biliary tree. T he gallbladder is not distended. Multiple gallstones are identified. The spleen, pancreas and bilat eral adrenal glands are within normal limits. Bilateral kidneys are normal in size with a tiny cyst within the mid right kidney. There are bilateral renal calcifications which are vascular. There is no radiopaque ureteral calculus identified. There is no hydronephrosis or hydroureter. There is n o retroperitoneal adenopathy. The abdominal aorta is of normal caliber with scattered atherosclerot ic calcifications. There is no bowel obstruction or free air. A normal appendix is identified. There is no diverticul osis or diverticulitis. There is large volume ascites. Pelvis: The bladder is unremarkable. The prostate and seminal vesicles are within normal limits. There is no significant pelvic adenopathy. Evaluation of the osseous structures demonstrates no suspicious lytic or blastic lesion. IMPRESSION: Large volume ascites. Cholelithiasis. Vascular calcifications reflective of atherosclerosis. Mild bibasilar atelectasis and left lower lobe consolidation. Bilateral small pleural effusions. Moderate cardiomegaly. .Devonte Valdez MD, Date Time Electronically viewed and signed by .Devonte Valdez MD, MD on 11/05/2016 03:54 .T/
[2016-11-05] MEDS ORDERED: INSULIN REGULAR, HUMAN 100 UNIT/1 ML 3ML VIAL IV ONE (04:07)
[2016-11-05] MEDS ORDERED: CA CHLORIDE 10% 10 ML SYRINGE IV ONE (04:07)
[2016-11-05] MEDS ORDERED: NA POLYST SULFON 15 GM/60 ML BTL PO ONE (04:07)
[2016-11-05] MEDS ORDERED: DEXTROSE 50% 50 ML SYRINGE IV PRN (04:30)
--- NOTE | 2016-11-05 04:33 | ERA ---
ER Documentation Chief Complaint Date/Time DATE: 11/05/16 TIME: 04:29 Chief Complaint abd bloating with n/v missed hd x 1 week last hd was last wed This is a 61-year-old male with a history of nausea and vomiting and diarrhea for the past week with abdominal bloating. The patient states that he has missed dialysis for over a week now. Says he has no fever he says he has some diffuse abdominal cramps. There is no blood in his vomit or diarrhea. No bile in his vomit. Denies any chest pain shortness of breath. Asked why he missed dialysis he states "they will not take me". ROS All systems reviewed and are negative except as per history of present illness. Medications Home Meds No Active Prescriptions or Reported Meds Allergies Allergies: Coded Allergies: No Known Allergy (Unverified , 11/05/16) PMhx/Soc Medical and Surgical Hx: pt denies Medical Hx, pt denies Surgical Hx History of Surgery: Yes Anesthesia Reaction: No Hx Neurological Disorder: No Hx Respiratory Disorders: No Hx Cardiac Disorders: Yes (htn, DIALYSIS, DM ) Hx Psychiatric Problems: No Hx Alcohol Use: No Hx Substance Use: No Hx Tobacco Use: Yes Smoking Status: Current every day smoker FmHx Family History: No coronary disease Physical Exam Vitals Vital Signs Date Time Temp Pulse Resp B/P Pulse Ox O2 Delivery O2 Flow Rate FiO2 11/05/16 01:35 97.2 78 18 201/98 100 11/04/16 20:34 97.2 78 18 142/89 100 Physical Exam Const: Well-developed, well-nourished Head: Atraumatic, normocephalic Eyes: Normal Conjunctiva, PERRLA, EOMI, normal sclera, no nystagmus ENT: Normal External Ears, Nose and Mouth, moist mucus membranes. Neck: Full range of motion. No meningismus, no lymphadenopathy. Resp: Clear to auscultation bilaterally, no wheezing, rhonchi, rales Cardio: Regular rate and rhythm, no murmurs, S1 S2 present Abd: Soft distended with diffuse mild tenderness. Normal bowel sounds, no guarding or rebound, no pulsitile abdominal masses or bruits Skin: No petechiae or rashes, no ecchymosis , no maculopapular rash Back: No midline or flank tenderness Ext: No cyanosis, or edema, FROM x 4, normal inspection, neurovascularly intact x 4 Neur: Awake and alert, STR 5/5 x 4, sensation intact x 4, no focal findings, cerebellum intact Psych: Normal Mood and Affect Result Diagram: 11/05/16 0124 11/05/16 0124 Results 24 hrs Laboratory Tests Test 11/05/16 01:24 White Blood Count 5.810^3/ul Red Blood Count 3.8710^6/ul Hemoglobin 11.9g/dl Hematocrit 35.1% Mean Corpuscular Volume 90.7fl Mean Corpuscular Hemoglobin 30.7pg Mean Corpuscular Hemoglobin Concent 33.9g/dl Red Cell Distribution Width 13.8% Platelet Count 46663^3/UL Mean Platelet Volume 8.7fl Neutrophils % 60.8% Lymphocytes % 27.6% Monocytes % 9.5% Eosinophils % 1.4% Basophils % 0.5% Nucleated Red Blood Cells % 0.0/100WBC Neutrophils # 3.510^3/ul Lymphocytes # 1.610^3/ul Monocytes # 0.610^3/ul Eosinophils # 0.110^3/ul Basophils # 0.010^3/ul Nucleated Red Blood Cells # 0.010^3/ul Sodium Level 133mmol/L Potassium Level 6.8mmol/L Chloride Level 93mmol/L Carbon Dioxide Level 24mmol/L Anion Gap 23 Blood Urea Nitrogen 116mg/dl Creatinine 13.17mg/dl Glucose Level 103mg/dl Calcium Level 10.5mg/dl Total Bilirubin 0.0mg/dl Direct Bilirubin 0.00mg/dl Indirect Bilirubin 0.0mg/dl Aspartate Amino Transf (AST/SGOT) 18IU/L Alanine Aminotransferase (ALT/SGPT) 17IU/L Alkaline Phosphatase 205IU/L Total Protein 7.7g/dl Albumin 3.5g/dl Globulin 4.20g/dl Albumin/Globulin Ratio 0.83 Lipase 124U/L Current Medications Medications (Trade) Dose Ordered Sig/Raquel Route PRN Reason Start Time Stop Time Status Last Admin Dose Admin Hydromorphone HCl (Dilaudid) 1 mg ONCE STAT IV 11/05/16 01:56 11/05/16 01:58 DC 11/05/16 02:31 Ondansetron HCl (Zofran Inj) 4 mg ONCE STAT IV 11/05/16 01:56 11/05/16 01:58 DC 11/05/16 02:32 Sodium Polystyrene Sulfonate (Kayexalate) 30 gm ONCE ONCE PO 11/05/16 04:07 11/05/16 04:08 DC Calcium Chloride (Ca Chloride 10% Syg) 1,000 mg ONCE ONCE IV 11/05/16 04:07 11/05/16 04:08 DC Insulin Human Regular (Humulin R) 10 unit ONCE ONCE IV 11/05/16 04:07 11/05/16 04:08 DC Dextrose (D50w Syringe) ONCE PRN IV POC BLOOD GLUCOSE <250 MG/DL 11/05/16 04:30 Procedures/MDM PROCEDURE: CT Abdomen and pelvis without contrast. CLINICAL INDICATION: Abdominal pain. TECHNIQUE: CT scan of the abdomen and pelvis was performed on a multi- detector high-resolution CT scanner. Contiguous axial images were obtained from the lung bases to the ischial tuberosities without intravenous contrast. Coronal and sagittal reformatted images were also obtained. Images were reviewed on the PACS workstation. One or more of the following dose reduction techniques were used: - Automated exposure control. - Adjustment of the mA and/or kV according to patient size. - Use of iterative reconstruction technique. Exam CTD/vol = 15.54 mGy. Total exam DLP = 1040.02 mGy-cm. COMPARISON: None. FINDINGS: Evaluation of the lung bases demonstrates mild bibasilar atelectasis and left lower lobe consolidation. There are bilateral small pleural effusions. The heart is moderately enlarged with coronary artery calcifications. Abdomen: The liver is normal in size. There is no focal mass or dilatation of the biliary tree. The gallbladder is not distended. Multiple gallstones are identified. The spleen, pancreas and bilateral adrenal glands are within normal limits. Bilateral kidneys are normal in size with a tiny cyst within the mid right kidney. There are bilateral renal calcifications which are vascular. There is no radiopaque ureteral calculus identified. There is no hydronephrosis or hydroureter. There is no retroperitoneal adenopathy. The abdominal aorta is of normal caliber with scattered atherosclerotic calcifications. There is no bowel obstruction or free air. A normal appendix is identified. There is no diverticulosis or diverticulitis. There is large volume ascites. Pelvis: The bladder is unremarkable. The prostate and seminal vesicles are within normal limits. There is no significant pelvic adenopathy. Evaluation of the osseous structures demonstrates no suspicious lytic or blastic lesion. IMPRESSION: Large volume ascites. Cholelithiasis. Vascular calcifications reflective of atherosclerosis. Mild bibasilar atelectasis and left lower lobe consolidation. Bilateral small pleural effusions. Moderate cardiomegaly. .Devonte Valdez MD, Date Time Electronically viewed and signed by .Devonte Valdez MD, on 11/05/2016 03:54 .T/ CC: WOODY DAVENPORT DO Patient was given the hyperkalemic cocktail of insulin, D50, calcium and sodium bicarb. Patient has very elevated troponin 0.8 he will be admitted to the hospital for hemodialysis for his hyperkalemia. Patient is a large volume of ascites will likely need paracentesis. Departure Diagnosis: Primary Impression: Hyperkalemia Additional Impression: Ascites Qualified Code: R18.8 - Other ascites Condition: Stable WOODY DAVENPORT DO Nov 05, 2016 04:33
[2016-11-05] MEDS ORDERED: NA POLYST SULFON 15 GM/60 ML BTL PO STA (04:35)
[2016-11-05] MEDS ORDERED: ONDANSETRON 4 MG INJ IV PRN (06:00)
[2016-11-05] MEDS ORDERED: ACETAMINOPHEN 325 MG TAB PO PRN ×2 (06:00→09:30)
--- NOTE | 2016-11-05 09:16 | PN ---
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 anticipate dc either later today or tomorrow after HD cont home meds Subjective 24 Hr Interval Summary Free Text/Dictation Pt sleeping this AM Exam/Review of Systems Vital Signs Vitals Vital Signs Date Time Temp Pulse Resp B/P Pulse Ox O2 Delivery O2 Flow Rate FiO2 11/05/16 08:00 69 11/05/16 06:44 97.2 18 184/86 93 Room Air Exam nad resps nonlabored abd nondistended no edema no rashes Results Result Diagram: 11/05/16 0124 11/05/16 0124 Results 24 hrs Laboratory Tests Test 11/05/16 01:24 White Blood Count 5.8 Red Blood Count 3.87 #L Hemoglobin 11.9 #L Hematocrit 35.1 #L Mean Corpuscular Volume 90.7 Mean Corpuscular Hemoglobin 30.7 Mean Corpuscular Hemoglobin Concent 33.9 Red Cell Distribution Width 13.8 # Platelet Count 316 Mean Platelet Volume 8.7 Neutrophils % 60.8 Lymphocytes % 27.6 Monocytes % 9.5 Eosinophils % 1.4 Basophils % 0.5 Nucleated Red Blood Cells % 0.0 Neutrophils # 3.5 Lymphocytes # 1.6 Monocytes # 0.6 Eosinophils # 0.1 Basophils # 0.0 Nucleated Red Blood Cells # 0.0 Sodium Level 133 L Potassium Level 6.8 *H Chloride Level 93 L Carbon Dioxide Level 24 Anion Gap 23 H Blood Urea Nitrogen 116 H Creatinine 13.17 H Glucose Level 103 Calcium Level 10.5 H Total Bilirubin 0.0 L Direct Bilirubin 0.00 Indirect Bilirubin 0.0 Aspartate Amino Transf (AST/SGOT) 18 Alanine Aminotransferase (ALT/SGPT) 17 Alkaline Phosphatase 205 H Total Protein 7.7 Albumin 3.5 Globulin 4.20 H Albumin/Globulin Ratio 0.83 Lipase 124 Medications Medications Current Medications Dextrose (D50w Syringe) ONCE PRN IV POC BLOOD GLUCOSE <250 MG/DL Last administered on 11/05/16t 05:11; Admin Dose 50 ML; Start 11/05/16 at 04:30 MURPHY WHEAT MD Nov 05, 2016 09:16
[2016-11-05] MEDS ORDERED: NACL 0.9% 3 ML SYG IV SCH (09:30)
--- NOTE | 2016-11-05 10:35 | HP ---
Date/Time of Note Date/Time of Note DATE: 11/05/16 TIME: 10:29 Assessment/Plan VTE Prophylaxis VTE Prophylaxis Intervention: SCD's Assessment/Plan Chief Complaint/Hosp Course This is a 60-year-old male being admitted to the telemetry floor for: #1 Uremia: Patient has missed dialysis treatment approximately 1 week according to him. I do feel this patient has noncompliance with his dialysis however we will try to confirm find out if he is really indeed been turned away from the dialysis center which I find very surprising if it indeed is happening. Treatment for hyperkalemia given in the ED along with Kayexalate. Will obtain urgent dialysis this a.m. will consult nephrology. #2 end-stage renal disease: Patient will undergo urgent hemodialysis secondary to possible uremic encephalopathy at this time. We will continue to monitor electrolytes. Nephrology consult placed, appreciate their involvement #3 Diabetes mellitus: We will obtain a hemoglobin A1c, insulin sliding scale. #4 hypertension: We will continue to monitor this and start any medications if necessary. #65 DVT and GI prophylaxis: SCDs, Protonix Problems: HPI/ROS Admit Date/Time Admit Date/Time Nov 05, 2016 at 05:50 Hx of Present Illness Chief complaint: Nausea vomiting and diarrhea 1 week This is a 61-year-old male with a history of nausea and vomiting and diarrhea for the past week with abdominal bloating. The patient states that he has missed dialysis for over a week now. Says he has no fever he says he has some diffuse abdominal cramps. There is no blood in his vomit or diarrhea. No bile in his vomit. Denies any chest pain shortness of breath. Asked why he missed dialysis he states "they will not take me". We will questioned further regarding his dialysis patient states that he went with the transport vehicle however he was sent home from the dialysis because he could not do it and he was told that he needs to go to the hospital. Allergies: NKDA Medications: See GUNNAR MELVIN Const: As per HPI Eyes : No pain discharge or redness or change in visual acuity ENT: No pain, sore throat, congestion, congestion, dysphagia or discharge Respiratory: No shortness of breath, cough, sputum, wheezing, or pleuritic pain Cardiovascular: No chest pain, palpitation, PND, or edema GI : As per HPI Genitourinary: As per HPI Musculoskeletal: No joint pain, back pain, neck pain, restricted range of motion in neck or joints Skin: No rash, bruising or hives Neuro: No headache, dizziness, syncope, seizure, focal weakness Endocrine: No polyuria, polydipsia, temperature intolerance Psych: No hallucination, depression, anxiety or suicidal ideation PMH/Family/Social Past Medical History End-stage renal disease on dialysis, diabetes mellitus, high blood pressure Past Surgical History Left upper extremity AV fistula Family History Significant Family History: no pertinent family hx Social History Alcohol Use: none Smoking Status: Current every day smoker Drug Use: none Exam/Review of Systems Vital Signs Vitals Vital Signs Date Time Temp Pulse Resp B/P Pulse Ox O2 Delivery O2 Flow Rate FiO2 11/05/16 08:00 69 11/05/16 06:44 97.2 18 184/86 93 Room Air Exam Exam General: Patient is well-developed well-nourished The patient is alert oriented -3 lying comfortably in bed. HEENT: Atraumatic, normocephalic. The pupils are equal, round and reactive. Extraocular motor are intact Neck: Supple with full range of motion. No rigidity or meningismus Chest: Nontender Lungs: Clear to auscultation bilaterally no crackles rales or wheezing Heart: Normal S1-S2, Regular rhythm and rate. No overt murmurs appreciated Abdomen: Soft , nontender, nondistended , bowel sounds are present. No guarding no rebound tenderness , No masses or organomegaly. No costovertebral temporal angle mass Extremities: Normal to inspection, no edema no cyanosis Neurologic: Normal mental status, speech normal, cranial nerves II through XII are intact, motor and sensory are intact, no focal weakness, no auditory or visual hallucinations Additional Comments PROCEDURE: CT Abdomen and pelvis without contrast. CLINICAL INDICATION: Abdominal pain. TECHNIQUE: CT scan of the abdomen and pelvis was performed on a multi- detector high-resolution CT scanner. Contiguous axial images were obtained from the lung bases to the ischial tuberosities without intravenous contrast. Coronal and sagittal reformatted images were also obtained. Images were reviewed on the PACS workstation. One or more of the following dose reduction techniques were used: - Automated exposure control. - Adjustment of the mA and/or kV according to patient size. - Use of iterative reconstruction technique. Exam CTD/vol = 15.54 mGy. Total exam DLP = 1040.02 mGy-cm. COMPARISON: None. FINDINGS: Evaluation of the lung bases demonstrates mild bibasilar atelectasis and left lower lobe consolidation. There are bilateral small pleural effusions. The heart is moderately enlarged with coronary artery calcifications. Abdomen: The liver is normal in size. There is no focal mass or dilatation of the biliary tree. The gallbladder is not distended. Multiple gallstones are identified. The spleen, pancreas and bilateral adrenal glands are within normal limits. Bilateral kidneys are normal in size with a tiny cyst within the mid right kidney. There are bilateral renal calcifications which are vascular. There is no radiopaque ureteral calculus identified. There is no hydronephrosis or hydroureter. There is no retroperitoneal adenopathy. The abdominal aorta is of normal caliber with scattered atherosclerotic calcifications. There is no bowel obstruction or free air. A normal appendix is identified. There is no diverticulosis or diverticulitis. There is large volume ascites. Pelvis: The bladder is unremarkable. The prostate and seminal vesicles are within normal limits. There is no significant pelvic adenopathy. Evaluation of the osseous structures demonstrates no suspicious lytic or blastic lesion. IMPRESSION: Large volume ascites. Cholelithiasis. Vascular calcifications reflective of atherosclerosis. Mild bibasilar atelectasis and left lower lobe consolidation. Bilateral small pleural effusions. Moderate cardiomegaly. .Devonte Valdez MD, MD Date Time Electronically viewed and signed by .Devonte Valdez MD, on 11/05/2016 03:54 .T/ CC: WOODY DAVENPORT DO Labs Result Diagram: 11/05/16 0124 11/05/16 0124 Medications Medications Current Medications Dextrose (D50w Syringe) ONCE PRN IV POC BLOOD GLUCOSE <250 MG/DL Last administered on 11/05/16t 05:11; Admin Dose 50 ML; Start 11/05/16 at 04:30 Acetaminophen (Tylenol Tab) 650 mg Q6H PRN PO PAIN LEVEL 1-3 OR FEVER; Start 9 /21/17 at 09:30 Heparin Sodium (Porcine) (Heparin (5000 Units/0.5 ml)) 5,000 unit Q8 SC ; Start 11/05/16 at 14:00 MELY AYALA Nov 05, 2016 10:35
--- NOTE | 2016-11-05 12:02 | CONS ---
DATE OF ADMISSION: 11/05/2016 DATE OF CONSULTATION: 11/05/2016 REASON FOR CONSULTATION: End-stage renal disease. REFERRING PHYSICIAN: Dr. Ortega. HISTORY OF PRESENT ILLNESS: This is a 61-year-old male with a past medical history of end-stage renal disease on hemodialysis with access left AV fistula. The patient dialyzes in [place]. 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 The patient states his last dialysis was 1 week ago. The patient now presents to [facility] with nausea, vomiting. Upon arrival, the patient had laboratory data drawn, which showed a potassium of 6.8, BUN of 116, creatinine of 13.71. In the emergency room, the patient was given Kayexalate, calcium gluconate, insulin, and admitted to telemetry. PAST MEDICAL HISTORY: History of end-stage renal disease, hypertension, diabetes. PAST SURGICAL HISTORY: Left upper extremity AV fistula. FAMILY HISTORY: Noncontributory. SOCIAL HISTORY: Patient is a smoker. MEDICATIONS: Reviewed. REVIEW OF SYSTEMS: Fourteen-point review of systems conducted. Pertinent positives stated in HPI, otherwise negative. PHYSICAL EXAMINATION: VITAL SIGNS: Blood pressure is 184/86, respirations 18, pulse 84, temperature 97.2. HEENT: Head is normocephalic. NECK: Supple. HEART: Regular rate. LUNGS: Show diminished breath sounds at the base. ABDOMEN: Soft, nontender to palpation. No rebound or guarding. EXTREMITIES: Negative for clubbing, cyanosis. No edema. DERMATOLOGIC: Rashes. MUSCULOSKELETAL: Patient has a left AV fistula with positive thrill and bruit. NEUROLOGIC: No focal deficits. LABORATORY: Shows white count 5.8, hemoglobin 11.9, crit 35.1, platelet count is 316. Sodium 133, potassium 6.8, BUN 116, creatinine 13.17, calcium 10.5. IMPRESSION AND PLAN: This is a 60-year-old male who presents with: 1. End-stage renal disease with access left arteriovenous fistula. The patient will have urgent hemodialysis today. We will dialyze for 3 hours on 2 potassium bath, calcium 2.5. We will ultrafiltrate as tolerated. We will anticipate daily dialysis for solute clearance and volume removal. 2. Uremia. The patient has nausea, vomiting. The patient has missed multiple sessions of dialysis. The plan as stated above is to do daily dialysis for solute clearance. We will monitor closely. 3. Hypertensive urgency. Etiology is due to increasing to intravascular volume. We will ultrafiltrate with hemodialysis. Continue current blood pressure regimen. 4. Hyponatremia secondary to end-stage renal disease. We will dialyze on a 140 sodium bath. 5. Anemia. Monitor H and H levels. No need for Epogen at this time. 6. Mineral bone disorder. Monitor calcium and phosphorus levels. We will likely start the patient on phosphate binders. 7. Diabetes. Continue current insulin regimen. Thank you, Dr. Ortega, for this interesting consult. It will be a pleasure to follow the patient with you throughout the hospital course. Dictated By: Barron Morin DO /muna/colleen /Document#: [id number]
[2016-11-05] MEDS: HEPARIN 5,000 UNIT/0.5 ML VIAL SC SCH ×2 (15:19→22:36)
[2016-11-06] VITALS (10 sets, daily range): BP systolic 135–218; BP diastolic 61–99; PULSE 93–97; RESP 16–18
[2016-11-06] MEDS ORDERED: hydrALAzine 20 MG INJ IV PRN ×2 (04:30)
[2016-11-06] MEDS: HEPARIN 5,000 UNIT/0.5 ML VIAL SC SCH ×2 (06:00→06:22)
--- NOTE | 2016-11-06 15:07 | DS ---
Date/Time of Note Date/Time of Note DATE: 11/06/16 TIME: 15:06 Discharge Summary Admission/Discharge Info Admit Date/Time Nov 05, 2016 at 05:50 Discharge Date/Time Nov 06, 2016 at 07:08 Discharge Diagnosis noncompliance with HD with resultant hyperkalemia and symptomatic uremia Patient Condition: Guarded Consults nephrology Hx of Present Illness Chief complaint: Nausea vomiting and diarrhea 1 week This is a 61-year-old male with a history of nausea and vomiting and diarrhea for the past week with abdominal bloating. The patient states that he has missed dialysis for over a week now. Says he has no fever he says he has some diffuse abdominal cramps. There is no blood in his vomit or diarrhea. No bile in his vomit. Denies any chest pain shortness of breath. Asked why he missed dialysis he states "they will not take me". We will questioned further regarding his dialysis patient states that he went with the transport vehicle however he was sent home from the dialysis because he could not do it and he was told that he needs to go to the hospital. Allergies: NKDA Medications: See [facility] Hospital Course Pt got HD x 1. Left AMA at 730 this morning. I was not notified of his departure until after the fact thus was unable to review risks/benefits of departure. No dc scripts given as pt left AMA Home Meds No Active Prescriptions or Reported Meds Primary Care Provider Care Physician No Primary Time spent on discharge: > 30 minutes Pending Labs Laboratory Tests Test 11/05/16 23:31 Bedside Glucose 104mg/dL (70-220) MURPHY WHEAT MD Nov 06, 2016 15:07
== END 2016-11-06 07:08 | disposition left against medical advice (07) ==
LOC: E/R 20:10 → MS3 11-05 05:50 → MS4 11-06 02:21
PROVIDERS: ADMIT Family Medicine; ATTEND Family Medicine
DX: E87.5 Hyperkalemia (principal); I12.0 Hypertensive chronic kidney disease with stage 5 chronic kidney disease or end stage renal disease; E11.22 Type 2 diabetes mellitus with diabetic chronic kidney disease; N18.6 End stage renal disease; Z99.2 Dependence on renal dialysis; Z91.15 Patient's noncompliance with renal dialysis; F17.200 Nicotine dependence, unspecified, uncomplicated; D64.9 Anemia, unspecified; M89.9 Disorder of bone, unspecified
CPT/HCPCS: 74176; 80053; 82962; 83036; 83690; 85025; 90935; G0378; J0360; J1170; J1644; J1815; J2405

== ENCOUNTER 2017-05-24 02:57 | Inpatient (IN) | END 2017-07-01 16:05 | disposition EXP | DRG 682 ==